=== PATIENT | female | born 1995 | race Caucasian/White ===

== ENCOUNTER → 2021-07-05 | Outpatient (CLI) | payer OTHER | LOC: COL.RAD 07:37 | DX: N97.9 Female infertility, unspecified (principal) | CPT/HCPCS: Q9967 ==

== ENCOUNTER → 2022-02-22 | Outpatient (CLI) | payer OTHER | LOC: COL.RAD 09:13 | DX: N83.201 Unspecified ovarian cyst, right side (principal) | CPT/HCPCS: A9575 ==

== ENCOUNTER 2023-10-17 04:14 | Inpatient (IN) | payer OTHER ==
[2023-10-17] VITALS (51 sets, daily range): BP systolic 91–139; BP diastolic 54–86; PULSE 77–137; TEMP 97.9–98.7
[~2023-10-17] VITALS: Ht 170.2 cm; Wt 85.2 kg
--- NOTE | 2023-10-17 04:30 | NUR ---
PRESENTS TO OBT VIA WHEELCHAIR ACCOMPANIED BY SPOUSE, PLATING TANK OPERATOR APPRENTICE, AND RN. PT PRESENTS WITH COMPLAINT OF CONTRACTIONS BEGINING YESTERDAY AND INCREASING IN THE AFTERNOON/OVERNIGHT. PT DENIES LOF/VAG BLEEDING. PT ENDORSES MOVEMENT. PT CHANGED INTO GOWN AND PLACED ON FHR MONITOR. VS OBTAINED. SVE COMPLETED BY RN.
[2023-10-17] MEDS ORDERED: PRENATAL MVI PO (04:54)
[2023-10-17] MEDS ORDERED: GLUCOPHAGE500 MG/TAB PO (04:56)
--- NOTE | 2023-10-17 06:15 | NUR ---
0615Report from Marlon Almeida RN. RN at bedside and reviews plan of care with pt and spouse who verbalize understanding. Ambulation, position change, and birthing ball noted. Pt declines. Pt states she wants to rest at this time. Breathes through some contracions. 0710Pt assited back to bed. SVE /-1. BOWI. Scalp stim attempted with no accel noted. Will continue to monitor. 0720Dr. Goodpasture updated on pt. See physician notification. Plan of care reviewed with pt and spouse who verbalize understanding. 0735IV to right hand. LR fluid bolus infusing. Consent forms explained and signed. Denies questions or needs at this time. Call light within reach.
[2023-10-17 08:16] LABS: BASO % 0.3 % (0.0-2.0); EOS % 0.1 % (0.0-4.0); GRAN # 10.9 K/mm3 (1.4-6.5); GRAN % 81.6 % (42.2-75.2); HEMATOCRIT 37.6 % (37.0-47.0); HEMOGLOBIN 13.3 g/dl (12.5-16.0); LYMPH # 1.6 K/mm3 (1.2-3.4); LYMPH % 12.1 % (20.0-51.0); MEAN CELL VOLUME 86 fl (80.0-100.0); MEAN CORPUSCULAR HEMOGLOBIN 31 pg (27-31); MEAN CORPUSCULAR HGB CONC 35 g/dl (33.0-37.0); MEAN PLATELET VOLUME 10.6 fl (7.4-10.4); MONO # 0.7 K/mm3 (0.1-0.6); MONO % 5.4 % (1.7-9.3); PLATELET COUNT 190 K/mm3 (130-400); RED BLOOD COUNT 4.36 M/mm3 (4.10-5.30); REDCELL DISTRIBUTION WIDTH-CV 13.2 % (11.5-14.5)
--- NOTE | 2023-10-17 09:15 | NUR ---
0915Pt requesting intermittent FHR monitoring. Accel noted at 0847. EFM off and pt to shower. Notified when and how to call RN. Pt verbalizes understanding.
--- NOTE | 2023-10-17 10:00 | NUR ---
1000Pt requesting epidural. Anjelica Hernandez CRNA on unit and notified. LR bolus initiated. EFM replaced. Pt moving with ctx. Tracing intermittently due to maternal position. 1011Epidural placed and single shot by Anjelica Hernandez CRNA. See anesthesia record. 1018Pt wedge left. EFM adjusted and tracing well. Plan of care and safety precautions reviewed. Pt verbalizes understanding. 1039Dr. Betancourt on unit and reviews records and FHR strips. To bedside and discussess plan of care to include AROM. Pt agreeable. AROM by Dr. Betancourt for small amount of clear amniotic fluid. SVE /-1. Pt repositioned right lateral with left leg in stirrups. Pt denies questions or needs. Resting comfortable with call light within reach.
--- NOTE | 2023-10-17 11:05 | NUR ---
1105Dr. Serafin remains on unit and reviews strip. Notified maternal HR 110's-120's. Notified ctx every 5-6min. Per Dr. Betancourt if pt agreeable, RN to augment labor with pitocin per protocol. Reviewed plan of care with pt and spouse who state they wish to discuss privatly. RN to nurses desk. 1125Pt calls RN to bedside and states she desires labor augmentation with pitocin. 1130Pitocin discussed with pt and started at 2mu per protocol. Catheter placed. Questions invited and answered. Resting with call light within reach.
--- NOTE | 2023-10-17 12:24 | NUR ---
1224FHR decel to 90bmp and lasting 60 seconds with spontaneous return to baseline. Ctx tracing intermittently, difficult to determine FHR decel onset. Pt repositioned. 1255FHR baseline 170's. LR bolus initiated. Will continue to monitor.
--- NOTE | 2023-10-17 12:40 | NUR ---
1240Dr. Goodpasture at bedside. Reviews strips. SVE /-1. Plan of care discusssed with pt who verbalizes understanding.
--- NOTE | 2023-10-17 13:00 | NUR ---
1300Bilateral side lying hip release. 1320Exaggerated runners right lateral. Resting with call light within reach.
--- NOTE | 2023-10-17 16:50 | NUR ---
1500 SVE BY THIS RN . YBARRA REMOVED 1515 THIS RN BEGINS COACHING PT THROUGH PUSHING WITH CONTRACTIONS. THIS RN, SPOUSE AND ECOMMERCE ANALYST AT BEDSIDE FROM NOW UNTIL AFTER DELIVERY TIME. 1612 DR CAMILO HERE FOR DELIVERY. 1632 SPONTANEOUS VAGINAL DELIVERY OF VIABLE MALE INFANT. INFANT TO MOTHER'S ABDOMEN. BULB SUCTIONED AND STIMULATED. DELAYED CORD CLAMPED PRACTICED. CORD CLAMPED BY DR CAMILO AND CUT BY FOB. INFANT TO MOTHER'S ABDOMEN FOR SKIN TO SKIN. DR CAMILO NOTES AND REPAIRS 2ND DEGREE PERINEAL LACERATION. 1636 SPONTANEOUS DELIVERY OF PLACENTA. PITOCIN BOLUS STARTED PER PROTOCOL. STRAIGHT CATH DONE BY DR CAMILO. FUNDAL MASSAGE DONE. SMALL AMT OF BLEEDING NOTED. FIRM/MIDLINE. PERICARE DONE. SAFETY PRECAUTIONS AND POC DISCUSSED. PT VERBALIZES UNDERSTANDING.
[2023-10-18 00:37] VITALS: BP 118/72; PULSE 99; TEMP 98.5
[2023-10-18 04:05] VITALS: BP 111/71; PULSE 98; TEMP 98
[2023-10-18 08:00] VITALS: BP 117/76; PULSE 87; TEMP 97.8
[2023-10-18] MEDS ORDERED: IBU800 M1 PO (08:14)
--- NOTE | 2023-10-18 09:34 | NUR ---
Initial visit; Parents thanked Multimedia Coordinator for offering congratulations and God's blessings for the of their son. Multimedia Coordinator thanked family for choosing [facility].
[2023-10-18 20:40] VITALS: BP 110/69; PULSE 84; TEMP 97.7
[2023-10-19 08:15] VITALS: BP 108/75; PULSE 89; TEMP 98.2
== END 2023-10-19 12:25 | disposition home or self-care (01) | DRG 807 ==
LOC: LDRO 04:14 → LDR 04:30 → LDRO 08:18 → LDR 08:21 → OB 08:21
PROVIDERS: ADMIT Student in an Organized Health Care Education/Training Program
PROC: 10E0XZZ Delivery of Products of Conception, External Approach (ICD-10-PCS; principal; 2023-10-17)
PROC: 0KQM0ZZ Repair Perineum Muscle, Open Approach (ICD-10-PCS; 2023-10-17)
DX: O36.63X0 Maternal care for excessive fetal growth, third trimester, not applicable or unspecified (principal); Z37.0 Single live birth; Z3A.39 39 weeks gestation of pregnancy; O99.284 Endocrine, nutritional and metabolic diseases complicating childbirth; E28.2 Polycystic ovarian syndrome; O76 Abnormality in fetal heart rate and rhythm complicating labor and delivery; O77.0 Labor and delivery complicated by meconium in amniotic fluid; O70.1 Second degree perineal laceration during delivery; Z23 Encounter for immunization
CPT/HCPCS: J2590; J2795; J7120